=== PATIENT | female | born 1960 | race Caucasian/White ===

== ENCOUNTER → 2018-03-02 07:49 | Outpatient (CLI) | payer OTHER, SELFPAY ==
--- NOTE | 2018-03-02 07:54 | US_ITS ---
STUDY: ULTRASOUND OF THE FEMALE PELVIS - COMPLETE REASON FOR EXAM: Female, 57 years old. Postmenopausal bleeding LMP: 5 years ago TECHNIQUE: Transvaginal TECHNICAL QUALITY: Adequate. COMPARISON: 02/13/2011 FINDINGS: The uterus is anteverted and is in a midline position. The uterus measures 7.0 x 4.2 x 3.2 cm. Normal uterine cervix. The endometrium measures 8 mm in thickness, and is hyperechoic. Endometrial thickness previously measured 4 mm in 2010. There is no demonstrated endometrial mass. There is no demonstrated myometrial mass. I.U.D. - The patient does not have an I.U.D. The right ovary is visualized. The right ovary measures 2.4 x 2.3 x 1.5 cm. There is no right ovarian cyst or ovarian mass. There is no visualized right adnexal mass or complex lesion. There is normal arterial and normal venous vascularity. The left ovary is visualized. The left ovary measures 2.0 x 1.9 x 1.7 cm. There is no left ovarian cyst or ovarian mass. There is no visualized left adnexal mass or complex lesion. There is normal arterial and normal venous vascularity. There is no fluid in the cul-de-sac. US/Transvaginal Non- IMPRESSION: 1. Mild thickening of the endometrial complex considered abnormal for a postmenopausal female. No discrete endometrial mass. Differential considerations include endometrial hyperplasia and neoplasm. Endometrial sampling is suggested. Electronically Signed: Carloz Landers MD at 6:54 EST , Service support ,
== END ==
PROVIDERS: Family Provider Family Medicine; PCP Family Medicine; Referring Provider Specialist; Visit Provider Specialist
DX: N95.0 Postmenopausal bleeding (principal)
CPT/HCPCS: 76830

== ENCOUNTER → 2018-04-18 08:37 | Outpatient (CLI) | payer BC, SELFPAY ==
--- NOTE | 2018-04-18 08:42 | BI_ITS ---
MAMMOGRAPHY - BILATERAL SCREENING REASON FOR EXAM: Female, 57 years old. Routine annual screening examination. PERTINENT HISTORY: Aunt with breast cancer. TECHNIQUE: Digital bilateral breast butch (3D mammographic acquisition) in the CC and MLO projections. 2-D mediolateral oblique (MLO) and craniocaudad (CC) views of both breasts were obtained. CAD: Full Field Digital Mammography with Computer Added Detection was performed. COMPARISON: Comparison is made with prior study dated March 23, 2014 and March 10, 2013. FINDINGS: Breast Composition: The breasts are heterogeneously dense, which may obscure small masses. There are no dominant masses or suspicious calcifications. A tissue clip marker is once again seen in the upper slightly lateral midportion of the left breast. Stable appearance of the bilateral axillary lymph nodes. No other significant abnormalities are identified. There has been no significant change since the prior study. BI/SCREENING MAMM (CAD), BILAT IMPRESSION: Stable bilateral screening mammogram. Yearly follow-up mammogram recommended. (A) ASSESSMENT CATEGORY: BIRADS Category 2: Benign. A letter regarding these results will be sent to the patient by the facility within 30 days. Approximately 10% of breast cancers are not detected by mammography. A normal mammogram should not delay biopsy of a clinically suspicious abnormality. [id number] Electronically Signed: Rocael Partida MD at 9:58 EST Tel [phone], Service support ,
== END ==
PROVIDERS: Family Provider Family Medicine; PCP Family Medicine; Visit Provider Specialist
DX: Z12.31 Encounter for screening mammogram for malignant neoplasm of breast (principal)
CPT/HCPCS: 77063; 77067

== ENCOUNTER → 2018-04-29 16:20 | Outpatient (CLI) | payer BC, SELFPAY ==
--- NOTE | 2018-04-29 11:50 | COLBX_PTH ---
PATIENT: CE KEY LOC: [facility] U#:[id number] AGE/SX: 64/F ROOM: RE04/29/[address]: Dr. Augustus Bell MD : 1960 BED: DIS: SPEC #: [id number] RECD: 04/29/18 16:00 STATUS: ROC KATERYNA #: [id number] HENRRY: 04/29/18 11:[address]: Augustus Bell DEPT: SURGICAL PATHOLOGY RECD BY: Moisés Martinez ENTERED: 05/02/18 10:22 SP TYPE: COLON BX OTHR DR: Dr. Rajinder Goodwin, [facility] Tissues: Sigmoid colon biopsy Procedures: Surgery Specimen Level IV HEADER OPERATION: Colonoscopy with biopsies PRE-OP DIAGNOSIS: Screening/polyp TISSUE SUBMITTED: Sigmoid polyp biopsies, rule out adenoma MICROSCOPIC DIAGNOSIS Sigmoid colon polyp, biopsy: Fragments of hyperplastic polyp. AM:ifeoma 05/03/18 MICROSCOPIC DESCRIPTION Slides are reviewed. GROSS DESCRIPTION Received in fixative is one container labeled with the patient's name and designated sigmoid polyp biopsy. The specimen consists of three irregular fragments of light solo soft tissue that in aggregate measure 0.6 x 0.2 x 0.1 cm. The specimen is totally submitted in one cassette. / AM:ifeoma 05/02/18 TC:5 CPT: 37344
--- OUTSIDE RECORDS SUMMARY | 2018-07-04 07:45 | XMS RPT_ITS ---
:1960 Author Organization [facility] Care Team Providers Name Role Phone Aly Toth Attending Unavailable Rajinder Goodwin Primary Care Unavailable Augustus Bell Attending Unavailable Augustus Bell Referring Unavailable Rajinder Goodwin Primary Care Unavailable Aly Toth Attending Unavailable Rajinder Goodwin Primary Care Unavailable Aly Toth Referring Unavailable PROBLEMS PROBLEMS No Problem Records FoundPROCEDURES PROCEDURES No Procedure Records FoundRESULTS RESULTS COLON BIOPSY (CHOOSE Observed: 04/29/2018 Status: F Source: [place]) 11:50 AM [facility] REPOSITORY Patient: CE KEY : 1960 (57/F) Acct Num: [id number] Phys: Augustus Bell Unit Num: [id number] Loc: LABSPEC Specimen: [id number] Received: 04/29/18 - 1600 Spec Type: COLON BX TISSUES 1 TISSUES: Sigmoid colon biopsy GROSS DESCRIPTION Received in fixative is one container labeled with the patient's name and designated sigmoid polyp biopsy. The specimen consists of three irregular fragments of light solo soft tissue that in aggregate measure 0.6 x 0.2 x 0.1 cm. The specimen is totally submitted in one cassette. / AM:ifeoma 05/02/18 TC:5 CPT: 64530 HEADER OPERATION: Colonoscopy with biopsies PRE-OP DIAGNOSIS: Screening/polyp TISSUE SUBMITTED: Sigmoid polyp biopsies, rule out adenoma MICROSCOPIC DESCRIPTION Slides are reviewed. MICROSCOPIC DIAGNOSIS Sigmoid colon polyp, biopsy: Fragments of hyperplastic polyp. AM:ifeoma 05/03/18 Signed Aj Loza DO 05/03/18 <signature on file> Performed By: #### PCOLBX #### [facility] [address] [place], [address] SCREENING MAMM (CAD), Observed: 04/18/2018 Status: F Source: [facility] 8:42 AM [facility] REPOSITORY [facility] [address] [place] [id number] SCREENING MAMM (CAD), BILAT MR#: [id number] Acct: [id number] Name: CE KEY Rep #: [id number] : 1960 F 57 From: Rocael Partida MD PCP: Rajinder Goodwin Status: REG CL Study: SCREENING MAMM (CAD), BILAT Date of Exam: 04/18/18 Exam# [id number] Ordering Dr: Aly Toth DO MAMMOGRAPHY - BILATERAL SCREENING REASON FOR EXAM: Female, 57 years old. Routine annual screening examination. PERTINENT HISTORY: Aunt with breast cancer. TECHNIQUE: Digital bilateral breast butch (3D mammographic acquisition) in the CC and MLO projections. 2-D mediolateral oblique (MLO) and craniocaudad (CC) views of both breasts were obtained. CAD: Full Field Digital Mammography with Computer Added Detection was performed. COMPARISON: Comparison is made with prior study dated March 23, 2014 and March 10, 2013. FINDINGS: Breast Composition: The breasts are heterogeneously dense, which may obscure small masses. There are no dominant masses or suspicious calcifications. A tissue clip marker is once again seen in the upper slightly lateral midportion of the left breast. Stable appearance of the bilateral axillary lymph nodes. No other significant abnormalities are identified. There has been no significant change since the prior study. BI/SCREENING MAMM (CAD), BILAT IMPRESSION: Stable bilateral screening mammogram. Yearly follow-up mammogram recommended. (A) ASSESSMENT CATEGORY: BIRADS Category 2: Benign. A letter regarding these results will be sent to the patient by the facility within 30 days. Approximately 10% of breast cancers are not detected by mammography. A normal mammogram should not delay biopsy of a clinically suspicious abnormality. [id number] Electronically Signed: Rocael Partida MD at 9:58 EST Tel [phone], Service support , CC: Aly Toth DO; Rajinder Goodwin Operating Engineer: Signed TRANSVAGINAL Observed: 03/02/2018 Status: F Source: [place] NON- 7:55 AM [facility] REPOSITORY [facility] [address] [place] [address] Transvaginal Non- MR#: [id number] Acct: [id number] Name: CE KEY Rep #: [id number] : 1960 F 57 From: Carloz Landers MD PCP: Rajinder Goodwin Status: REG CLI Study: Transvaginal Non- Date of Exam: 03/02/18 Exam# [id number] Ordering Dr: Aly Toth DO STUDY: ULTRASOUND OF THE FEMALE PELVIS - COMPLETE REASON FOR EXAM: Female, 57 years old. Postmenopausal bleeding LMP: 5 years ago TECHNIQUE: Transvaginal TECHNICAL QUALITY: Adequate. COMPARISON: 02/13/2011 FINDINGS: The uterus is anteverted and is in a midline position. The uterus measures 7.0 x 4.2 x 3.2 cm. Normal uterine cervix. The endometrium measures 8 mm in thickness, and is hyperechoic. Endometrial thickness previously measured 4 mm in 2010. There is no demonstrated endometrial mass. There is no demonstrated myometrial mass. I.U.D. - The patient does not have an I.U.D. The right ovary is visualized. The right ovary measures 2.4 x 2.3 x 1.5 cm. There is no right ovarian cyst or ovarian mass. There is no visualized right adnexal mass or complex lesion. There is normal arterial and normal venous vascularity. The left ovary is visualized. The left ovary measures 2.0 x 1.9 x 1.7 cm. There is no left ovarian cyst or ovarian mass. There is no visualized left adnexal mass or complex lesion. There is normal arterial and normal venous vascularity. There is no fluid in the cul-de-sac. US/Transvaginal Non- IMPRESSION: 1. Mild thickening of the endometrial complex considered abnormal for a postmenopausal female. No discrete endometrial mass. Differential considerations include endometrial hyperplasia and neoplasm. Endometrial sampling is suggested. Electronically Signed: Carloz Landers MD at 6:54 EST , Service support , CC: Aly Toth DO; Rajinder Goodwin Operating Engineer: Signed ALLERGIES ALLERGIES No Allergies Records FoundENCOUNTERS ENCOUNTERS ADMIT/DISCHARGE ACCOUNT ADMITTING ENCOUNTER LOCATION SOURCE NUMBER CLASS 04/29/2018 [id number] [place] [facility] ing:LABSPEC Repository 04/18/2018 [id number] Ambulatory [place] [facility] ing:OPBI Repository 03/02/2018 [id number] Ambulatory [place] 3 [facility] ing:OPUS Repository PAYERS PAYERS ENCOUNTER GUARANTOR PAYER SUBSCRIBER SOURCE 04/29/2018 CE Denise Primary CE F [place] [id number] TR Insurance:ANTHEMPolic UNDERWOODDOB: [address], y Number: [id number] [id number]: [id number] Repository Date:[id number] () [id number] [address]XG: 04/29/2018 Secondary NOT GIVENUNK Guy Insurance:SELF PAY [facility] Number: Effective Repository Date:2018-04-29 04/18/2018 CE F Primary CE F [place] [id number] TR Insurance:ANTHEMPolic UNDERWOODDOB: [address], y Number: [id number] Service [facility] [id number]: [id number] Repository Date:6027-80-38[address] () [address]Q [place] [address]SA: 04/18/2018 Secondary NOT GIVENUNK Guy Insurance:SELF PAY [facility] Number: Effective Repository Date:2018-02-22 03/02/2018 CE F Primary CE F [place] [id number] TR Insurance:[facility] UNDERWOODDOB: [address] [address]Sgkcrt [id number] Service Unit [id number]: Number: Repository [id number] () Date:2011-91-03[address], [place] [address]ZX: 03/02/2018 Secondary NOT GIVENUNK [place] Insurance:SELF PAY [facility] Number: Effective Repository Date:2018-02-22
== END ==
PROVIDERS: Family Provider Family Medicine; PCP Family Medicine; Referring Provider Internal Medicine Gastroenterology; Visit Provider Internal Medicine Gastroenterology
DX: Z12.11 Encounter for screening for malignant neoplasm of colon (principal); K63.5 Polyp of colon
CPT/HCPCS: 88305

== ENCOUNTER → 2020-07-08 13:52 | Outpatient (CLI) | payer BC, SELFPAY ==
--- NOTE | 2020-07-08 13:56 | BI_ITS ---
MAMMOGRAPHY - BILATERAL SCREENING REASON FOR EXAM: Female, 59 years old. Routine annual screening examination. PERTINENT HISTORY: Aunt with breast cancer. TECHNIQUE: Digital bilateral breast marine (3D mammographic acquisition) in the CC and MLO projections. 2-D mediolateral oblique (MLO) and craniocaudad (CC) views of both breasts were obtained. CAD: Full Field Digital Mammography with Computer Added Detection was performed. COMPARISON: Comparison is made with prior study dated 10/16/2018 and 03/23/2014. FINDINGS: Breast Composition: The breasts are heterogeneously dense, which may obscure small masses. There are no dominant masses or suspicious calcifications. A tissue clip marker is once again seen in the upper slightly lateral midportion of the left breast. Stable benign-appearing bilateral axillary lymph nodes. No other significant abnormalities are identified. There has been no significant change since the prior study. BI/SCRN MAMM (CAD)W/MARINE BILAT IMPRESSION: Stable bilateral screening mammogram. Yearly follow-up mammogram recommended. (A) ASSESSMENT CATEGORY: BIRADS Category 2: Benign. A letter regarding these results will be sent to the patient by the facility within 30 days. Approximately 10% of breast cancers are not detected by mammography. A normal mammogram should not delay biopsy of a clinically suspicious abnormality. [id number] Electronically Signed: Rocael Partida MD at 14:43 EDT , Service support ,
== END ==
PROVIDERS: PCP Family Medicine; Referring Provider Specialist; Visit Provider Specialist
DX: Z12.31 Encounter for screening mammogram for malignant neoplasm of breast (principal)
CPT/HCPCS: 77063; 77067

== ENCOUNTER → 2023-07-15 | Outpatient (CLI) | payer BC, SELFPAY ==
--- NOTE | 2023-07-15 07:32 | BI_ITS ---
MAMMOGRAPHY - BILATERAL SCREENING REASON FOR EXAM: Female, 62 years old. Routine annual screening examination. PERTINENT HISTORY: Aunt with breast cancer. TECHNIQUE: Digital bilateral breast marine (3D mammographic acquisition) in the CC and MLO projections. 2-D mediolateral oblique (MLO) and craniocaudad (CC) views of both breasts were obtained. CAD: Full Field Digital Mammography with Computer Added Detection was performed. COMPARISON: Comparison is made with prior study dated July 08, 2020 and April 18, 2018. FINDINGS: Breast Composition: The breasts are heterogeneously dense, which may obscure small masses. There are no dominant masses or suspicious calcifications. A tissue clip marker is once again seen in the upper slightly lateral midportion of the left breast. Stable bilateral benign-appearing axillary lymph nodes. No other significant abnormalities are identified. There has been no significant change since the prior study. BI/SCRN MAMM (CAD)W/MARINE BILAT IMPRESSION: Stable bilateral screening mammogram. Yearly follow-up mammogram recommended. (A) ASSESSMENT CATEGORY: BIRADS Category 2: Benign. A letter regarding these results will be sent to the patient by the facility within 30 days. Approximately 10% of breast cancers are not detected by mammography. A normal mammogram should not delay biopsy of a clinically suspicious abnormality. [id number] Electronically Signed: Rocael Partida MD at 8:57 EDT ,
== END | disposition home or self-care (01) ==
DX: Z12.31 Encounter for screening mammogram for malignant neoplasm of breast (principal); Z80.3 Family history of malignant neoplasm of breast
CPT/HCPCS: 77063; 77067